=== PATIENT | female | born 1965 | race Caucasian/White ===

== ENCOUNTER 2016-07-25 10:32 | Day surgery (SDC) | payer OTHER ==
[~2016-07-25 10:32] MED LIST: ANCEF/STERILE WATER 2 GM/20 ML 2 GM/20 ML SYRINGE IV SCH; HEPARIN SUB-Q NR; ceFAZolin 2 GM in NACL 0.9% 100 ML IV ONE
[2016-07-25] MEDS ORDERED: NACL BACTERIOSTATIC INFILTRATI ONE (11:42)
[2016-07-25] MEDS ORDERED: MARCAINE-EPI 0.25%-1:200,000 INFILTRATI ONE ×3 (12:29→13:53)
[2016-07-25] MEDS ORDERED: DIPRIVAN 10 MG/ML IV ONE (12:33)
[2016-07-25] MEDS ORDERED: SUBLIMAZE ONE (12:33)
[2016-07-25] MEDS ORDERED: XYLOCAINE MPF 2% ONE (12:34)
[2016-07-25] MEDS ORDERED: ZOFRAN ONE (12:35)
[2016-07-25] MEDS ORDERED: DECADRON ONE (12:35)
[2016-07-25] MEDS ORDERED: ROBINUL ONE ×2 (12:35)
[2016-07-25] MEDS ORDERED: NEOSTIGMINE ONE (12:35)
[2016-07-25] MEDS ORDERED: PEPCID IV NR (13:00)
[2016-07-25] MEDS ORDERED: NACL 0.9% 1000 ML 1,000 ML IV SCH (13:00)
[2016-07-25] MEDS ORDERED: VERSED IV NR (13:00)
--- NOTE | 2016-07-25 13:01 | Anesthesia Consultation ---
Anesthesia Consult and Med Hx Date of service: 07/25/16 - Airway Anesthetic Teeth Evaluation: Good ROM Head & Neck: Adequate Mental/Hyoid Distance: Inadequate Mallampati Class: Class III Intubation Access Assessment: Possibly Difficult - Pulmonary Exam CTA: Yes - Cardiac Exam Cardiac Exam: RRR - Pre-Operative Health Status ASA Pre-Surgery Classification: ASA2 Proposed Anesthetic Plan: General - Pulmonary Hx Smoking: No Hx Sleep Apnea: No - Cardiovascular System Hx Hypertension: No - Central Nervous System Hx Neuromuscular Disorder: Yes (patient states she has numbness in her lower extremeties) Hx Psychiatric Problems: No - Gastrointestinal Hx Gastroesophageal Reflux Disease: No - Endocrine Hx Renal Disease: No Hx Non-Insulin Dependent Diabetes: Yes - Hematic Hx Anemia: No Hx Sickle Cell Disease: No - Other Systems Hx Alcohol Use: No Hx Substance Use: No Hx Cancer: No Hx Obesity: No
--- NOTE | 2016-07-25 13:01 | Anesthesia Day of Surgery ---
Anesthesia Day of Surgery - Day of Surgery Patient Examined: Yes Patient H&P Reviewed: Yes Patient is NPO: Yes
[2016-07-25] MEDS ORDERED: NACL 0.9% IR ONE (13:53)
[2016-07-25] MEDS ORDERED: DILAUDID ONE (14:20)
[2016-07-25] MEDS ORDERED: TORADOL ONE (14:30)
--- NOTE | 2016-07-25 14:55 | Short Stay Summary ---
Short Stay Documentation Date of service: 07/25/16 - Allergies and Medications Current Medications: Allergies No Known Allergies Allergy (Verified 07/25/16 11:33) Home Medications Medication Instructions Recorded Confirmed Last Taken Type Gabapentin [Neurontin] 300 mg PO BID 07/20/16 07/25/16 07/23/16 History metFORMIN [Glucophage] 500 mg PO BID 07/20/16 07/25/16 07/24/16 History Active Medications Famotidine (Pepcid) 20 mg IV PREOP NR Stop: 07/25/16 23:59 Heparin Sodium (Porcine) (Heparin) 5,000 unit SUB-Q PREOP NR Stop: 07/25/16 23:00 Last Admin: 07/25/16 11:50 Dose: 5,000 unit Cefazolin Sodium (Ancef/Sterile Water 2 Gm/20 Ml) 2 gm in 20 mls @ 40 mls/hr IV ONCE ADAIR Stop: 07/25/16 23:00 Sodium Chloride (Nacl 0.9% 1000 Ml) 1,000 mls @ 75 mls/hr IV DIRECT ADAIR Midazolam HCl (Versed) 2 mg IV PREOP NR Stop: 07/25/16 23:59 - Brief post op/procedure progress note Date of procedure: 07/25/16 Pre-op diagnosis: Biliary colic Post-op diagnosis: same Procedure: lap anika Anesthesia: [place], local Surgeon: RAVEN CONNER Stem Dryer Maintainer: JERRY JOHNSON Estimated blood loss: minimal Pathology: list (gallbladder) Condition: stable - Disposition Condition at discharge: Good Disposition: DISCHARGED TO HOME OR SELFCARE Short Stay Discharge Plan Activity: no restrictions Diet: regular Wound: remove dressing (07/27/16 and then may shower) Follow up with: GLADYS SALINAS [Other] - 7 Days RAVEN CONNER MD [Staff Physician] - 7 Days Prescriptions: oxyCODONE /ACETAMINOPHEN [Percocet 5/325] 1 - 2 tab PO Q4HR PRN #30 tab PRN Reason: Pain Promethazine [Phenergan TAB] 25 mg PO Q6HR PRN #10 tab PRN Reason: Nausea
[2016-07-25 15:33] VITALS: BP 105/59
[2016-07-25] MEDS ORDERED: ZOFRAN IV PRN (16:00)
[2016-07-25] MEDS ORDERED: PERCOCET 5/325 PO PRN (16:25)
--- NOTE | 2016-07-25 21:31 | Operative Report ---
PREOPERATIVE DIAGNOSIS: Biliary colic. POSTOPERATIVE DIAGNOSIS: Biliary colic. PROCEDURE: Laparoscopic cholecystectomy. SURGEON: Pablo Castelan MD OYSTER CULLER: Dr. Davidson. ANESTHESIA: General and local. ESTIMATED BLOOD LOSS: Minimal. SPECIMEN: Gallbladder. COMPLICATIONS: None. INDICATIONS: This is a 51-year-old female who has right upper quadrant abdominal pain with a workup consistent with biliary colic who presents now for laparoscopic cholecystectomy. OPERATIVE COURSE: The patient was brought to the operating room, identified, and placed in the supine position. General anesthesia was achieved. Her abdomen was prepped and draped in usual manner. Prior to all incisions, the area was infiltrated with 0.25% Marcaine. An infraumbilical 5 mm incision was made using a Veress needle technique. The abdomen was insufflated to 15 mmHg pressure. A 5 mm trocar was inserted using a 30-degree 5-mm telescope. The other trocars were placed under direct vision, which included a 10 mm epigastric port and two 5 mm right lateral ports. The gallbladder was grasped and elevated. We tented up the triangle of Calot and then dissected out the cystic duct and artery. Once they were clearly identified going to the gallbladder, we placed clips in the duct proximally and distally, transected and clips in the artery proximally and distally and transected. The gallbladder was then removed from the liver bed using electrocautery and delivered through the epigastric port site. The liver bed was hemostatic at the end of procedure, clips in good position. No other pathology was seen. The ports removed under direct vision. No signs of bleeding from port sites. We evacuated the CO2 and closed all the incisions with a 4-0 Vicryl suture, Steri-Strips and bandage. She tolerated the procedure well without complications. JOB# [id number]/[email or web address]
== END 2016-07-25 16:40 | disposition home or self-care (01) ==
LOC: EDBD 10:32 → OR 10:32
PROVIDERS: ATTEND Surgery
DX: K80.64 Calculus of gallbladder and bile duct with chronic cholecystitis without obstruction (principal); E11.40 Type 2 diabetes mellitus with diabetic neuropathy, unspecified; Z82.49 Family history of ischemic heart disease and other diseases of the circulatory system; Z79.84 Long term (current) use of oral hypoglycemic drugs
CPT/HCPCS: 47562; 82962; 88304; J0690; J1100; J1170; J1644; J1885; J2250; J2405; J2704; J2710; J3010; J7030